=== PATIENT | female | born 1930 | race Caucasian/White ===

== ENCOUNTER → 2018-05-05 15:24 | Outpatient (CLI) | payer MEDICARE, BC ==
[~2018-05-05 15:24] MED LIST: ATARAX 25 MG TA25 MG PO; AVAPRO300 MG PO; BENADRYL 2% CRE30 GM TOPICAL; CARAFATE1 G PO; CIPRO500 MG PO; HYDRALAZINE HCL25 MG PO; HYDROCODON-ACE1 EAC7 PO; MIRALAX17 GM PO; MULTI-DAY VITAM1 TAB PO; NIFEDIPINE ER30 MG PO; NORVASC5 MG PO; OYST-CAL-5001 TAB PO; PLAVIX75 MG PO; SYNTHROID100 MCG PO; TENORMIN50 MG PO
== END | disposition home or self-care (01) ==
LOC: D.US 15:24
DX: N32.81 Overactive bladder (principal)

== ENCOUNTER → 2019-05-08 14:23 | Outpatient (CLI) | payer MEDICARE, BC | END | disposition home or self-care (01) | LOC: D.CT 14:23 | PROVIDERS: ATTEND Family Medicine | DX: R10.2 Pelvic and perineal pain (principal) ==